=== PATIENT | male | born 2000 | race Hispanic/Latino ===

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

== ENCOUNTER 2019-09-04 03:51 | Emergency (ER) | payer OTHER ==
[2019-09-04] MEDS ORDERED: LIDOCAINE HCL 2% JELLY 5 ML ONE (04:10)
[2019-09-04] MEDS ORDERED: TETANUS/DIPHTHERIA TOXOID [ADULT] 0.5 ML VIAL IM ONE (04:19)
== END 2019-09-04 04:30 | disposition home or self-care (01) ==
LOC: EDH 03:51
DX: S91.102A Unspecified open wound of left great toe without damage to nail, initial encounter (principal); S00.81XA Abrasion of other part of head, initial encounter; S20.311A Abrasion of right front wall of thorax, initial encounter; S80.812A Abrasion, left lower leg, initial encounter; S80.811A Abrasion, right lower leg, initial encounter; X58.XXXA Exposure to other specified factors, initial encounter; Y93.89 Activity, other specified; Y92.89 Other specified places as the place of occurrence of the external cause; Y99.8 Other external cause status
CPT/HCPCS: 90471; 90714

== ENCOUNTER 2020-06-29 11:59 | Emergency (ER) | payer SELFPAY ==
[2020-06-29] MEDS ORDERED: LIDOCAINE HCL-MPF 1% 2ML VIAL ONE (13:05)
[2020-06-29] MEDS ORDERED: CEFTRIAXONE 1G VIAL ONE (13:06)
[2020-06-29] MEDS ORDERED: AZITHROMYCIN 250 MG TABLET PO ONE (13:09)
[2020-06-29 14:09] LABS: APPEARANCE,URINE Clear (CLEAR); BILIRUBIN,URINE Negative (NEGATIVE); COLOR,URINE Yellow (YELLOW); GLUCOSE, URINE (UA) Negative (NEGATIVE); KETONES,URINE Negative (NEGATIVE); LEUKOCYTE ESTERASE ,URINE Negative (NEGATIVE); NITRATE,URINE Negative (NEGATIVE); OCCULT BLOOD,URINE Negative (NEGATIVE); PH,URINE 6.5 (5.0-8.0); PROTEIN,URINE Negative (NEGATIVE)
== END 2020-06-29 15:24 | disposition home or self-care (01) ==
LOC: EDH 11:59
DX: M54.5 Low back pain (principal); R30.0 Dysuria; R11.2 Nausea with vomiting, unspecified; Z72.0 Tobacco use
CPT/HCPCS: 74176; 81003; 96372; 99284; J0696; J3490